=== PATIENT | female | born 1985 | race American Indian/Alaskan Native ===

== ENCOUNTER 2016-05-10 11:51 | Emergency (ER) | payer SELFPAY ==
--- NOTE | 2016-05-10 12:38 | Emergency Department Report ---
Chief Complaint: Abdominal Pain Stated Complaint: ABDOMINAL PAIN Time Seen by Provider: 05/10/16 12:36 - HPI History of Present Illness: 30 y/o female complain of abdominal pain without any vaginal bleeding or vaginal discharge .pt state that she took a home test .pt state she unable to get medical treatment without confirmation . - ROS Review of Systems: per HPI - Exam Vital Signs: Vital Signs 05/10/16 12:25 Temperature 98.3 F Pulse Rate 91 H Respiratory 18 Rate Blood Pressure 124/76 O2 Sat by Pulse 100 Oximetry Physical Exam: GENERAL: The patient is well-developed and well-nourished. Patient is in NAD. HENT: Normocephalic. Atraumatic. Patient has moist mucous membranes. Throat: No erythema, swelling or exudates. EYES: Extraocular motions are intact, PERRL NECK: Supple. No meningitic signs are noted. There is no adenopathy noted. CHEST/LUNGS: Clear to auscultation bilaterally. No wheezing, rales or rhonchi noted. There is no respiratory distress noted. HEART/CARDIOVASCULAR: Regular rate and rhythm. Normal S1 S2. No murmurs, rubs , clicks, or gallops. ABDOMEN: Abdomen is soft, nontender.. Bowel sounds normoactive. There is no abdominal distention. Negative rebound tenderness. : Deferred. SKIN: There is no rash. There is no edema. There is no diaphoresis. NEURO: The patient is A&Ox3. The patient has no focal neurologic deficits. MUSCULOSKELETAL: There is no tenderness or deformity. There is no limitation range of motion. PSYCH: Pt has appropriate mood and affect. MSE screening note: Focused history and physical exam performed. Due to findings the following was ordered: ED Disposition for MSE Condition: Stable Instructions: Abdominal Pain (ED)
[2016-05-10 13:01] LABS: Basophils % (Auto) 0.4 % (0.0-1.8); Eosinophils % (Auto) 2.4 % (0.0-4.3); Hematocrit 33.6 % (30.3-42.9); Hemoglobin 10.8 gm/dl (10.1-14.3); Mean Corpuscular HGB Conc 32 % (30-34); Mean Corpuscular Volume 79 fl (79-97); Platelet Count 352 K/mm3 (140-440); Red Blood Count 4.27 M/mm3 (3.65-5.03); Red Cell Distribution Width 15.1 % (13.2-15.2); White Blood Count 9.9 K/mm3 (4.5-11.0)
[2016-05-10 13:07] LABS: BUN/Creatinine Ratio 18.33; Blood Urea Nitrogen 11 mg/dL (7-17); Calcium 9.4 mg/dL (8.4-10.2); Carbon Dioxide 23 mmol/L (22-30); Chloride 102.8 mmol/L (98-107); Glucose 78 mg/dL (65-100); Potassium 4.2 mmol/L (3.6-5.0); Sodium 139 mmol/L (137-145)
[2016-05-10 13:08] LABS: Mean Corpuscular Hemoglobin 25 pg (28-32)
[2016-05-10 13:10] LABS: Anion Gap 17 mmol/L
[2016-05-10 15:09] LABS: Bacteria,Urine 1+ /HPF (Negative); Bilirubin,Urine NEG (Negative); Blood,Urine NEG (Negative); Ketones,Urine TR mg/dL (Negative); Leukocyte Esterase,Urine NEG (Negative); Mucus,Urine 1+ /HPF; Nitrite,Urine NEG (Negative); Protein,Urine <15 mg/dL mg/dL (Negative); Urobilinogen,Urine < 2.0 mg/dL (<2.0)
--- NOTE | 2016-05-10 23:40 | Emergency Department Report ---
ED Abdominal Pain HPI - General Chief Complaint: Abdominal Pain Stated Complaint: ABDOMINAL PAIN Time Seen by Provider: 05/10/16 23:22 Source: patient Mode of arrival: Ambulatory Limitations: No Limitations - History of Present Illness Initial Comments: 30-year-old female presents emergency department complaining of intermittent upper abdominal pain for the past one day. Patient describes a tightness that does not radiate. Patient reports recent constipation and states that she has been straining a little. Patient states she is approximately 10 weeks . She has her first appointment with her CERTIFED REFRIGERATION OPERATOR already scheduled. She denies vaginal bleeding or vaginal discharge. There are no other complaints. MD Complaint: abdominal pain -: Gradual, days(s) (1) Location: epigastric Radiation: none Severity: mild Severity scale (0 -10): 2 Quality: other (tightness) Consistency: intermittent Improves With: nothing Worsens With: nothing Associated Symptoms: nausea - Related Data LMP (females 10-50): Previous Rx's Medication Instructions Recorded Last Taken Type Acetaminophen/Codeine 1 tab PO Q6H PRN #30 tab 02/09/14 Unknown Rx [Acetaminophen-Codeine #3 TAB] Ibuprofen [Motrin] 600 mg PO Q8H PRN #50 tablet 02/09/14 Unknown Rx Ibuprofen [Motrin] 800 mg PO Q8HR PRN #45 tablet 05/30/15 Unknown Rx metroNIDAZOLE [Flagyl TAB] 500 mg PO Q12HR #14 tab 05/30/15 Unknown Rx Amoxicillin [Amoxicillin TAB] 875 mg PO BID #14 tablet 04/26/16 Unknown Rx Allergies Allergy/AdvReac Type Severity Reaction Status Date / Time No Known Allergies Allergy Verified 02/09/14 12:46 ED Review of Systems ROS: Stated complaint: ABDOMINAL PAIN Other details as noted in HPI Comment: All other systems reviewed and negative Gastrointestinal: abdominal pain, nausea ED Past Medical Hx - Past Medical History Previous Medical History?: Yes Additional medical history: Gestational DM - Surgical History Past Surgical History?: Yes Additional Surgical History: - Family History Family history: no significant - Social History Smoking Status: Never Smoker Substance Use Type: None - Medications Home Medications: Home Medications Medication Instructions Recorded Confirmed Last Taken Type Acetaminophen/Codeine 1 tab PO Q6H PRN #30 tab 02/09/14 Unknown Rx [Acetaminophen-Codeine #3 TAB] Ibuprofen [Motrin] 600 mg PO Q8H PRN #50 tablet 02/09/14 Unknown Rx Ibuprofen [Motrin] 800 mg PO Q8HR PRN #45 tablet 05/30/15 Unknown Rx metroNIDAZOLE [Flagyl TAB] 500 mg PO Q12HR #14 tab 05/30/15 Unknown Rx Amoxicillin [Amoxicillin TAB] 875 mg PO BID #14 tablet 04/26/16 Unknown Rx ED Physical Exam - General Limitations: No Limitations General appearance: alert, in no apparent distress - Head Head exam: Present: atraumatic, normocephalic - Eye Eye exam: Present: normal appearance, PERRL, EOMI - ENT ENT exam: Present: normal exam, normal orophraynx, mucous membranes moist - Neck Neck exam: Present: normal inspection, full ROM. Absent: tenderness - Respiratory Respiratory exam: Present: normal lung sounds bilaterally. Absent: respiratory distress - Cardiovascular Cardiovascular Exam: Present: regular rate, normal rhythm, normal heart sounds - GI/Abdominal GI/Abdominal exam: Present: soft, tenderness (mild epigastric tenderness to palpation), normal bowel sounds. Absent: distended, guarding, rebound - Extremities Exam Extremities exam: Present: normal inspection, full ROM. Absent: tenderness - Back Exam Back exam: Present: normal inspection, full ROM. Absent: tenderness - Neurological Exam Neurological exam: Present: alert, oriented X3. Absent: motor sensory deficit - Skin Skin exam: Present: warm, dry, intact ED Course Vital Signs 05/10/16 12:25 Temperature 98.3 F Pulse Rate 91 H Respiratory 18 Rate Blood Pressure 124/76 O2 Sat by Pulse 100 Oximetry ED Medical Decision Making - Lab Data Result diagrams: 05/10/16 12:39 05/10/16 12:39 - Medical Decision Making Laboratory results reviewed and discussed with the patient. Patient will be discharged home at this time to follow up with her CERTIFED REFRIGERATION OPERATOR. - Differential Diagnosis abdominal wall strain, abdominal pain in , GERD Critical care attestation.: If time is entered above; I have spent that time in minutes in the direct care of this critically ill patient, excluding procedure time. ED Disposition Clinical Impression: Abdominal pain affecting Disposition: DISCHARGED TO HOME OR SELFCARE Is pt being admited?: No Condition: Stable Instructions: Abdominal Pain (ED) Referrals: PRIMARY CARE, [Primary Care Provider] - 3-5 Days Time of Disposition: 23:40
[2016-05-11 00:05] VITALS: BP 127/80
== END 2016-05-11 00:06 | disposition home or self-care (01) ==
LOC: ED 11:51
DX: O26.891 Other specified pregnancy related conditions, first trimester (principal); R10.10 Upper abdominal pain, unspecified; K59.00 Constipation, unspecified; Z3A.10 10 weeks gestation of pregnancy
CPT/HCPCS: 36415; 80048; 81001; 84702; 85025

== ENCOUNTER 2016-06-18 20:18 | Emergency (ER) | payer MEDICAID ==
[2016-06-18 21:53] LABS: Bilirubin,Urine NEG (Negative); Blood,Urine LG (Negative); Ketones,Urine NEG (Negative); Leukocyte Esterase,Urine TR (Negative); Mucus,Urine FEW /HPF; Nitrite,Urine NEG (Negative); Protein,Urine <15 mg/dL mg/dL (Negative); Urobilinogen,Urine < 2.0 mg/dL (<2.0)
[2016-06-18 22:38] LABS: Basophils % (Auto) 0.3 % (0.0-1.8); Eosinophils % (Auto) 2.8 % (0.0-4.3); Hematocrit 33.1 % (30.3-42.9); Hemoglobin 10.9 gm/dl (10.1-14.3); Mean Corpuscular HGB Conc 33 % (30-34); Mean Corpuscular Hemoglobin 26 pg (28-32); Mean Corpuscular Volume 79 fl (79-97); Platelet Count 310 K/mm3 (140-440); Red Blood Count 4.18 M/mm3 (3.65-5.03); Red Cell Distribution Width 16.2 % (13.2-15.2); White Blood Count 9.5 K/mm3 (4.5-11.0)
--- NOTE | 2016-06-18 23:04 | Ultrasound Report ---
FINAL REPORT PROCEDURE: US OB TRANSVAGINAL TECHNIQUE: Real-time transvaginal sonography of the uterus, placenta, amniotic fluid, adnexa, and fetus was performed with image documentation. Measurements were obtained to determine age/size. M-mode Doppler was used to document heartbeat. CPT 38293 HISTORY: vaginal bleeding COMPARISON: No prior studies are available for comparison. FINDINGS: There is a single live intrauterine gestation in breech presentation. Heart rate is 152 beats per minute. Placenta is anterior. There is no previa. Cervix measures 4 centimeters in length and is closed. Anatomic survey was not performed. weight is 122 grams. Estimated gestational age based on the measurements is 15 weeks and 4 days. Estimated date of delivery is 12/06/2016. Follow-up ultrasound between 18 20 weeks suggested for anatomic survey. IMPRESSION: 1. Single living intrauterine gestation at approximately 15 weeks and 4 days 2. EDC by US 12/06/2016.
--- NOTE | 2016-06-18 23:05 | Ultrasound Report ---
FINAL REPORT PROCEDURE: US OB greater than 14 weeks TECHNIQUE: Real-time transabdominal sonography of the uterus, placenta, amniotic fluid, adnexa, and fetus was performed with image documentation. Measurements were obtained to determine age/size. M-mode Doppler was used to document heartbeat. HISTORY: vaginal bleeding COMPARISON: No prior studies are available for comparison. FINDINGS: There is a single live intrauterine gestation in breech presentation. Heart rate is 152 beats per minute. Placenta is anterior. There is no previa. Cervix measures 4 centimeters in length and is closed. Anatomic survey was not performed. weight is 122 grams. Estimated gestational age based on the measurements is 15 weeks and 4 days. Estimated date of delivery is 12/06/2016. Follow-up ultrasound between 18 20 weeks suggested for anatomic survey. IMPRESSION: 1. Single living intrauterine gestation at approximately 15 weeks and 4 days 2. EDC by US 12/06/2016.
--- NOTE | 2016-06-19 05:39 | Emergency Department Report ---
HPI - General Chief Complaint: Vaginal Bleeding Time Seen by Provider: 06/19/16 05:34 - HPI HPI: 31-year-old Afro-[place] female who presents to the emergency department with the complaint of some mild vaginal bleeding while . The patient was at work last night around 8 PM when she went to use the bathroom and noticed a small amount of blood in her underwear. She denies any abdominal pain, back pain, nausea, vomiting or fever. She is currently about 4 months and is with one live child. She follows with [facility] obstetrics and is on vitamins. She says that the bleeding has since stopped. She is not taken anything for symptoms prior to presentation. ED Past Medical Hx - Past Medical History Previous Medical History?: Yes Additional medical history: Gestational DM - Surgical History Past Surgical History?: Yes Additional Surgical History: - Social History Smoking Status: Never Smoker - Medications Home Medications: Home Medications Medication Instructions Recorded Confirmed Last Taken Type Acetaminophen/Codeine 1 tab PO Q6H PRN #30 tab 02/09/14 Unknown Rx [Acetaminophen-Codeine #3 TAB] Ibuprofen [Motrin] 600 mg PO Q8H PRN #50 tablet 02/09/14 Unknown Rx Ibuprofen [Motrin] 800 mg PO Q8HR PRN #45 tablet 05/30/15 Unknown Rx metroNIDAZOLE [Flagyl TAB] 500 mg PO Q12HR #14 tab 05/30/15 Unknown Rx Amoxicillin [Amoxicillin TAB] 875 mg PO BID #14 tablet 04/26/16 Unknown Rx ED Review of Systems ROS: Stated complaint: VAGINAL BLEEDING Other details as noted in HPI Comment: All other systems reviewed and negative Constitutional: denies: chills, fever Eyes: denies: eye pain, eye discharge, vision change ENT: denies: ear pain, throat pain Respiratory: denies: cough, shortness of breath, wheezing Cardiovascular: denies: chest pain, palpitations Gastrointestinal: denies: abdominal pain, nausea, diarrhea Genitourinary: other (vag bleed). denies: urgency, dysuria, discharge Musculoskeletal: denies: back pain, joint swelling, arthralgia Skin: denies: rash, lesions Neurological: denies: headache, weakness, paresthesias Physical Exam - Physical Exam Vital Signs: Vital Signs 06/18/16 06/19/16 21:15 02:53 Temperature 98.6 F 98.4 F Pulse Rate 96 H 97 H Respiratory 18 16 Rate Blood Pressure 134/95 131/81 O2 Sat by Pulse 100 100 Oximetry Physical Exam: GENERAL: The patient is well-developed well-nourished. HEENT: Normocephalic. Atraumatic. Extraocular motions are intact. Patient has moist mucous membranes. Pupils equal reactive to light bilaterally. NECK: Supple. Trachea is midline. CHEST/LUNGS: Clear to auscultation. There is no respiratory distress noted. HEART/CARDIOVASCULAR: Regular. There is no tachycardia. There is no gallop rub or murmur. ABDOMEN: Abdomen is soft, nontender. Patient has normal bowel sounds. There is no abdominal distention. SKIN: There is no rash. There is no edema. There is no diaphoresis. NEURO: The patient is awake, alert, and oriented. The patient is cooperative. The patient has no focal neurologic deficits. The patient has normal speech. MUSCULOSKELETAL: There is no tenderness or deformity. There is no limitation range of motion. There is no evidence of acute injury. ED Course Vital Signs 06/18/16 06/19/16 21:15 02:53 Temperature 98.6 F 98.4 F Pulse Rate 96 H 97 H Respiratory 18 16 Rate Blood Pressure 134/95 131/81 O2 Sat by Pulse 100 100 Oximetry ED Medical Decision Making - Lab Data Result diagrams: 06/18/16 21:42 - Medical Decision Making 31-year-old female who is about 4 months and presents to the emergency department with a single episode of light vaginal bleeding last night at work that has since stopped. The patient had blood work and ultrasound done prior to getting back to the main emergency department. Her blood work is unremarkable. Ultrasound shows a live intrauterine at about 15 weeks 4 days. Patient has a benign physical exam. Discussed with patient the diagnosis of threatened miscarriage but that the baby appears to be alive and healthy. She already has an appointment with her primary DIRECTOR TOXICOLOGY tomorrow. We discussed pelvic rest. She will return to the ER with any worsening of her symptoms or any acute distress. - Differential Diagnosis threatened miscarriage, , spontaneous , fibroids, UTI Critical Care Time: No Critical care attestation.: If time is entered above; I have spent that time in minutes in the direct care of this critically ill patient, excluding procedure time. ED Disposition Clinical Impression: Threatened miscarriage Qualifiers: Weeks of gestation: 15 weeks Qualified Code(s): Z3A.15 - 15 weeks gestation of Disposition: DISCHARGED TO HOME OR SELFCARE Is pt being admited?: No Condition: Stable Instructions: Threatened Miscarriage (ED), (ED) Additional Instructions: Please follow-up with your DIRECTOR TOXICOLOGY tomorrow as previously scheduled. Return to the emergency department with any worsening of your symptoms or any acute distress. Referrals: PRIMARY CARE, [Primary Care Provider] - 3-5 Days [facility] [Provider Group] - 3-5 Days Time of Disposition: 05:37
[2016-06-19 06:49] VITALS: BP 126/72
== END 2016-06-19 06:10 | disposition home or self-care (01) ==
LOC: ED 20:18
DX: O20.0 Threatened abortion (principal); Z3A.15 15 weeks gestation of pregnancy; Z86.32 Personal history of gestational diabetes
CPT/HCPCS: 36415; 76805; 76817; 81001; 81025; 84702; 85025; 86850; 86900; 86901

== ENCOUNTER 2016-06-21 12:09 | Outpatient (CLI) | payer MEDICAID | END 2016-06-21 14:42 | disposition home or self-care (01) | LOC: LAB 12:09 → TRG 12:09 | PROVIDERS: ATTEND Midwife | DX: O36.0120 Maternal care for anti-D [Rh] antibodies, second trimester, not applicable or unspecified (principal); Z3A.16 16 weeks gestation of pregnancy | CPT/HCPCS: 86850; 86900; 86901; 96372; J2790 ==

== ENCOUNTER 2016-08-02 11:38 | Outpatient (CLI) | payer MEDICAID ==
[2016-08-02] MEDS ORDERED: LACTATED RINGERS 500 ML IV ONE (11:54)
[2016-08-02 12:06] VITALS: BP 119/72
== END 2016-08-02 13:55 | disposition home or self-care (01) ==
LOC: TRG 11:38 → LD 11:40 → TRG 13:55
PROVIDERS: ATTEND Obstetrics & Gynecology
DX: O47.02 False labor before 37 completed weeks of gestation, second trimester (principal); Z3A.22 22 weeks gestation of pregnancy
CPT/HCPCS: 82962

== ENCOUNTER 2016-11-25 05:04 | Inpatient (IN) | payer MEDICAID ==
--- NOTE | 2016-11-24 23:52 | History and Physical Report ---
History of Present Illness Date of examination: 11/25/16 Date of admission: 11/25/16 Chief complaint: scheduled repeat c/s History of present illness: This is a 31 yo G2 P 1 at 39 weeks here for scheduled c/s for history of c/s for failed iol and pih. Patient has been patient of [employer] patient. She has history of obesity, rh neg, and poly and has been under care of [facility]. Past History Past Medical History: no pertinent history, other (obesity ) Past Surgical History: section Family/Genetic History: none Social history: no significant social history, . denies: smoking, alcohol abuse - Obstetrical History Expected Date of Delivery: 12/02/16 Actual Gestation: 39 Week(s) 0 Day(s) : 2 Para: 1 Hx # Term Pregnancies: 1 Number of Pregnancies: 0 Spontaneous Abortions: 0 Induced : 0 Number of Living Children: 0 Medications and Allergies Allergies Allergy/AdvReac Type Severity Reaction Status Date / Time No Known Allergies Allergy Verified 02/09/14 12:46 Home Medications Medication Instructions Recorded Confirmed Last Taken Type No Known Home Medications [No 09/12/16 09/12/16 Unknown History Reported Home Medications] Review of Systems All systems: negative Constitutional: weight gain - Physical Exam Breasts: Positive: deferred Cardiovascular: Regular rate Lungs: Positive: Clear to auscultation Abdomen: Positive: normal appearance, soft Genitourinary (Female): Positive: normal external genitalia, normal perenium Vulva: both: normal Vagina: Positive: normal moisture Cervix: Positive: lesion Uterus: Positive: normal size, normal contour Anus/Rectum: Positive: normal perianal skin Extremities: Positive: normal Deep Tendon Reflex Grade: Normal +2 - Obstetrical FHR: auscultation normal, category 1 Results Result Diagrams: 11/25/16 05:50 All other labs normal. Assessment and Plan IUP 39 weeks scheduled repeat r/b/a reviewed which include but not limited to bleeding infection damage to pelvic organs risk of pain, blood clots, hysterectomy and will proceed with scheduled c/s
[~2016-11-25 05:04] MED LIST: ANCEF/STERILE WATER 2 GM/20 ML 2 GM/20 ML SYRINGE IV NR; PEPCID IV ONE; PITOCin/NS 20 UNIT/1000ML DRIP 20 UNITS/1,000 ML BAG IV SCH; REGLAN IV ONE
[2016-11-25] MEDS ORDERED: PEPCID IV ONE (05:16)
[2016-11-25] MEDS ORDERED: REGLAN ONE (05:16)
[2016-11-25] MEDS ORDERED: BICITRA ONE (05:16)
[2016-11-25] MEDS ORDERED: PITOCin/NS 20 UNIT/1000ML DRIP 20,000 MILLIUNITS/1,000 ML BAG IV ONE ×2 (05:17→16:08)
[2016-11-25] MEDS ORDERED: BICITRA PO ONE (05:30)
[2016-11-25] MEDS: LACTATED RINGERS 1,000 ML IV SCH ×3 (06:00→07:25)
[2016-11-25 06:06] LABS: Basophils % (Auto) 0.2 % (0.0-1.8); Eosinophils % (Auto) 2.5 % (0.0-4.3); Hematocrit 36.5 % (30.3-42.9); Hemoglobin 11.7 gm/dl (10.1-14.3); Mean Corpuscular HGB Conc 32 % (30-34); Mean Corpuscular Hemoglobin 27 pg (28-32); Mean Corpuscular Volume 83 fl (79-97); Platelet Count 265 K/mm3 (140-440); Red Blood Count 4.39 M/mm3 (3.65-5.03); Red Cell Distribution Width 14.7 % (13.2-15.2); White Blood Count 8.1 K/mm3 (4.5-11.0)
--- NOTE | 2016-11-25 07:21 | Anesthesia Consultation ---
Anesthesia Consult and Med Hx Date of service: 11/25/16 - Airway Anesthetic Teeth Evaluation: Good ROM Head & Neck: Adequate Mental/Hyoid Distance: Adequate - Pre-Operative Health Status ASA Pre-Surgery Classification: ASA3 Proposed Anesthetic Plan: Epidural, Spinal - Pulmonary Hx Asthma: No - Cardiovascular System Hx Hypertension: No - Central Nervous System Hx Seizures: No Hx Psychiatric Problems: No - Endocrine Hx Renal Disease: No Hx Hypothyroidism: No Hx Hyperthyroidism: No - Hematic Hx Anemia: No Hx Sickle Cell Disease: No - Other Systems Hx Alcohol Use: No Hx Obesity: Yes (Morbid obesity)
--- NOTE | 2016-11-25 07:21 | Anesthesia Day of Surgery ---
Anesthesia Day of Surgery - Day of Surgery Patient Examined: Yes Patient H&P Reviewed: Yes Patient is NPO: Yes
[2016-11-25] MEDS ORDERED: ZOFRAN IV PRN ×2 (07:22→09:22)
[2016-11-25] MEDS ORDERED: PHENERGAN PR PRN ×2 (07:22→09:22)
[2016-11-25] MEDS ORDERED: PHENERGAN PO PRN (07:22)
[2016-11-25] MEDS ORDERED: NARCAN 0.4 MG/1 ML IV PRN ×2 (07:22→09:22)
[2016-11-25] MEDS ORDERED: MORPHINE ONE (07:33)
[2016-11-25] MEDS ORDERED: ANCEF/STERILE WATER 2 GM/20 ML IV ONE (07:54)
[2016-11-25] MEDS ORDERED: fentaNYL-BUPIV 2 MCG/ML-0.125% 2 MCG/1 ML BAG EPIDURAL SCH (08:00)
[2016-11-25] MEDS ORDERED: SODIUM CHLORIDE FLUSH SYRINGE 10 ML IV NR ×2 (08:00→10:00)
[2016-11-25] MEDS ORDERED: NACL 0.9% IR ONE (08:00)
[2016-11-25] MEDS ORDERED: WATER FOR IRRIG STERILE IR ONE (08:00)
[2016-11-25] MEDS ORDERED: DILAUDID ONE (08:29)
[2016-11-25] MEDS ORDERED: XYLOCAINE MPF 2% ONE ×2 (08:48→09:14)
[2016-11-25] MEDS ORDERED: ZOFRAN ONE (08:49)
--- NOTE | 2016-11-25 09:14 | Procedure Note ---
OB Delivery Note - Delivery Date of Delivery: 11/25/16 Surgeon: MARTÍN NGUYEN Estimated blood loss: other (700 cc) - Section Preop diagnosis: repeat Postop diagnosis: same section procedure: section Disposition: PACU Complications: none Narrative: see op report - Infant A at 1 minute: 8 at 5 minutes: 9 Infant Gender: Male (weight 7 pound 9 ounces)
[2016-11-25] MEDS ORDERED: MYLICON PO PRN (09:22)
[2016-11-25] MEDS ORDERED: LANSINOH TP PRN (09:22)
[2016-11-25] MEDS ORDERED: SENOKOT PO PRN (09:22)
[2016-11-25] MEDS ORDERED: MILK OF MAGNESIA PO PRN (09:22)
[2016-11-25] MEDS ORDERED: ANUCORT-HC PR PRN (09:22)
[2016-11-25] MEDS ORDERED: NORCO 5/325 PO PRN (09:22)
[2016-11-25] MEDS ORDERED: TUCKS PAD TP PRN (09:22)
[2016-11-25] MEDS ORDERED: MORPHINE IV PRN ×2 (09:22)
[2016-11-25] MEDS ORDERED: TYLENOL PO PRN (09:22)
--- NOTE | 2016-11-25 09:22 | Operative Report ---
Operative Report Operative Report: PREOPERATIVE DIAGNOSES: 1. Intrauterine at 39 weeks . 2. Desires repeat LSTCS POSTOPERATIVE DIAGNOSES: 1. Intrauterine at 39 weeks . 2. Desires repeat LSTCS 3. Adhesions PROCEDURE PERFORMED: Repeat low-transverse section: lysis of adhesions ; vacuum assisted . ANESTHESIA: Spinal. ESTIMATED BLOOD LOSS: 700 mL. COMPLICATIONS: None. FINDINGS: Male in cephalic presentation, OA position, weight 7 pounds 9 ounces. Apgars were 8 at 1 minute and 9 at 5 minutes. Normal uterus, tubes, and ovaries were noted.Dense adhesions attached anteriorly to the uterus INDICATIONS: The patient is a 31-year-old 2, para 1 female, who presented to labor and delivery for scheduled repeat The procedure was described to the patient in detail including possible risks of bleeding, infection, injury to surrounding organs, and possible need for further surgery. Informed consent was obtained prior to proceeding with the procedure. PROCEDURE NOTE: The patient was taken to the operating room where Spinal anesthesia was found to be adequate. The patient was prepped and draped in the usual sterile fashion in the dorsal supine position with a left-zapata tilt. A Pfannenstiel skin incision was made with the scalpel and carried through to the underlying layer of fascia using the Bovie. The fascia was incised in the midline and extended laterally using Tanner scissors. Jorge clamps were used to elevate the superior aspect of the fascial incision, which was elevated, and the underlying rectus muscles were dissected off bluntly and using Tanner scissors. Attention was then turned to the inferior aspect of the fascial incision, which in similar fashion was grasped with Jorge clamps, elevated, and the underlying rectus muscles were dissected off bluntly and using Tanner scissors. The rectus muscles were dissected in the midline. The peritoneum was bluntly dissected, entered, and extended superiorly and inferiorly with good visualization of the bladder. The bladder blade was inserted. The vesicouterine peritoneum was identified with pickups and entered sharply using Metzenbaum scissors. This incision was extended laterally and the bladder flap was created digitally. The bladder blade was reinserted. The lower uterine segment was incised in a transverse fashion using the scalpel and extended using manual traction. Clear fluid was noted. The was subsequently delivered atraumatically with assistance form vacuum. The nose and mouth were bulb suctioned. The cord was clamped and cut. The was subsequently handed to the awaiting nursery nurse. Next, cord blood was obtained per the patient's request for cord blood donation, which took several minutes to perform. Subsequent to the collection of this blood, the placenta was removed spontaneously intact with a 3-vessel cord noted. The uterus was exteriorized after area released of adhesion from the anterior wall with tie and stitch and cleared of all clots and debris. The uterine incision was repaired in 2 layers using 0 vicryl suture.Repair of the uterine anterior adhesion with running locked suture with o vicryl. Hemostasis was visualized. The uterus was returned to the abdomen. Thissel and surgicell used for hemostasis. The pelvis was copiously irrigated. The uterine incision was reexamined and was noted to be hemostatic. The fascia was closed with 0 PDS, the subcutaneous layer was closed with 3-0 plain gut, and the skin was closed with selina. Sponge, lap, and instrument counts were correct x2. The patient was stable at the completion of the procedure and was subsequently transferred to the recovery room in stable condition.
[2016-11-25] MEDS ORDERED: PITOCin/NS 20 UNIT/1000ML DRIP 20 UNITS/1,000 ML BAG IV SCH (10:00)
[2016-11-25] MEDS: TORADOL IV PRN ×2 (10:28→12:11)
--- NOTE | 2016-11-25 11:01 | Post Anesthesia Evaluation ---
- Post Anesthesia Evaluation Patient Participated: Yes Airway Patent: Yes Stable Respiratory Function: Yes Nausea/Vomiting: No Temp > 96.8F: Yes Pain Manageable: Yes Adequeate Hydration: Yes Anesthesia Complications: No Block Receding Appropriately: Not Applicable Patient on Ventilator: No
[2016-11-25] MEDS ORDERED: METHERGINE IM ONE ×2 (12:32→12:40)
[2016-11-25] MEDS ORDERED: CYTOTEC PR ONE (12:34)
[2016-11-25] MEDS ORDERED: CYTOTEC ONE (12:39)
[2016-11-25 12:57] LABS: Basophils % (Auto) 0.1 % (0.0-1.8); Eosinophils % (Auto) 0.3 % (0.0-4.3); Hematocrit 30.7 % (30.3-42.9); Hemoglobin 10.1 gm/dl (10.1-14.3); Mean Corpuscular HGB Conc 33 % (30-34); Mean Corpuscular Hemoglobin 27 pg (28-32); Mean Corpuscular Volume 82 fl (79-97); Platelet Count 244 K/mm3 (140-440); Red Blood Count 3.74 M/mm3 (3.65-5.03); Red Cell Distribution Width 14.6 % (13.2-15.2); White Blood Count 11.8 K/mm3 (4.5-11.0)
--- NOTE | 2016-11-25 13:01 | Event Note ---
Date: 11/25/16 POD#0 s/p repeat c/sec bleeding 2 golf ball clots notified by nurse of approx 500 cc patient was evaluated and noted sitting up in bed comfortable NAD CVS RRR s1s2 lungs: CTA no wheezes no crackles abd soft nt uteus firm at umbilicus ext: no c/c/ e no calf tenderness lochia; moderate pelvic exam: palm size clot in uterus A/P POD#0 s/p repeat c/sec, PP hemorrhage ( cytotec 800 ug given rectally methergine 0.2mg IM x1 will do pad count and cbc now and then tonight patient currently stable bleeding decreasing will continue to closely observe
[2016-11-25] MEDS: PERCOCET 5/325 PO PRN ×2 (16:23→22:20)
[2016-11-25 20:48] LABS: Hematocrit 27.3 % (30.3-42.9); Hemoglobin 9.1 gm/dl (10.1-14.3)
[2016-11-25] MEDS: MOTRIN PO PRN (21:11)
[2016-11-26] MEDS: PERCOCET 5/325 PO PRN ×3 (07:28→22:50)
[2016-11-26] MEDS: PRENATAL VITAMIN PO SCH (07:29)
[2016-11-26] MEDS: FEOSOL PO SCH (07:30)
--- NOTE | 2016-11-26 08:37 | Progress Note ---
Subjective Date of service: 11/26/16 Principal diagnosis: repeat csection Interval history: Patient seen on post-op day 1, comfortable, ambulating and satisfied with anesthesia provided. Objective - Constitutional Vitals: Vital Signs - 12hr 11/26/16 11/26/16 00:30 04:00 Temperature 98.6 F 98.6 F Pulse Rate 91 H 81 Respiratory 16 16 Rate Blood Pressure 155/78 120/68 - Labs CBC & Chem 7: 11/25/16 20:37 Labs: Abnormal lab results 11/25/16 11/25/16 Range/Units 12:45 20:37 WBC 11.8 H (4.5-11.0) K/mm3 Hgb 9.1 L (10.1-14.3) gm/dl Hct 27.3 L (30.3-42.9) % MCH 27 L (28-32) pg Lymph % (Auto) 10.7 L (13.4-35.0) % Seg Neutrophils % 84.8 H (40.0-70.0) % Seg Neutrophils # 10.0 H (1.8-7.7) K/mm3
[2016-11-26] MEDS ORDERED: M-M-R II VACCINE SUB-Q ONE (09:24)
[2016-11-26] MEDS ORDERED: BOOSTRIX IM ONE (09:24)
--- NOTE | 2016-11-26 12:37 | Progress Note ---
Assessment and Plan - Patient Problems (1) delivery delivered Current Visit: Yes Status: Acute Plan to address problem: routine postoperative care Subjective - Subjective Date of service: 11/26/16 Principal diagnosis: repeat csection Interval history: Patient states she is hungry. Pain under better control. Reports being able to void without difficulty Patient reports: appetite normal, voiding normally, pain well controlled : doing well Objective - Vital Signs Latest vital signs: Vital Signs Temp Pulse Resp BP 11/26/16 09:05 98.6 F 87 20 112/65 11/26/16 04:00 98.6 F 81 16 120/68 11/26/16 00:30 98.6 F 91 H 16 155/78 11/25/16 19:40 98.6 F 81 16 137/77 11/25/16 16:23 20 11/25/16 16:00 97.9 F 84 16 151/83 11/25/16 12:41 20 Intake and Output 11/25/16 11/26/16 11/26/16 22:59 06:59 14:59 Intake Total 600 300 360 Output Total 400 1200 Balance 200 -900 360 Intake: Oral 300 Intake, Free Water 300 300 360 Output: Urine 400 1200 Indwelling Catheter 400 Void 1200 Other: Total, Intake Amount 300 Total, Output Amount 400 600 # Voids Void 1 1 - Exam Abdomen: Present: normal appearance Uterus: Present: normal, firm - Labs Labs: Abnormal lab results 11/25/16 11/25/16 Range/Units 12:45 20:37 WBC 11.8 H (4.5-11.0) K/mm3 Hgb 9.1 L (10.1-14.3) gm/dl Hct 27.3 L (30.3-42.9) % MCH 27 L (28-32) pg Lymph % (Auto) 10.7 L (13.4-35.0) % Seg Neutrophils % 84.8 H (40.0-70.0) % Seg Neutrophils # 10.0 H (1.8-7.7) K/mm3
[2016-11-26] MEDS: MOTRIN PO PRN (22:49)
[2016-11-27] MEDS ORDERED: BOOSTRIX IM ONE (06:05)
[2016-11-27] MEDS: PRENATAL VITAMIN PO SCH (10:34)
[2016-11-27] MEDS: FEOSOL PO SCH (10:35)
[2016-11-27] MEDS: PERCOCET 5/325 PO PRN (10:35)
[2016-11-27] MEDS: MOTRIN PO PRN (10:35)
--- NOTE | 2016-11-27 11:55 | Progress Note ---
Assessment and Plan A: POD#2 s/p repeat section, asymptomatic anemia P: Routine postoperative care. Discharge tomorrow. Subjective - Subjective Date of service: 11/27/16 Principal diagnosis: repeat csection Interval history: Pt without complaints. She would like to go home. Patient reports: appetite normal, voiding normally, pain well controlled, flatus , ambulating normally, no bowel movement, no nauseated : doing well Objective - Vital Signs Latest vital signs: Vital Signs Temp Pulse Resp BP 11/27/16 07:55 98.3 F 81 20 131/73 11/27/16 00:00 98.6 F 100 H 20 136/74 11/26/16 16:46 98.4 F 102 H 20 143/66 Intake and Output 11/26/16 11/27/16 11/27/16 22:59 06:59 14:59 Intake Total 360 360 Balance 360 360 Intake: Oral 360 Intake, Free Water 360 Other: Total, Intake Amount 360 # Voids Void 1 2 1 - Exam Breasts: Present: deferred Cardiovascular: Present: Regular rate Lungs: Present: Clear to auscultation Abdomen: Present: soft (obese, ), normal bowel sounds Uterus: Present: fundal height below umbilicus Extremities: Present: normal Incision: Present: intact (with selina )
--- NOTE | 2016-11-27 15:53 | Discharge Summary ---
Providers - Providers Date of Admission: 11/25/16 05:04 Date of discharge: 11/27/16 Attending physician: MARTÍN NGUYEN MD Primary care physician: KIRTI MANRIQUEZ Hospitalization Reason for admission: section Delivery: Procedure: section, repeat low transverse Procedure details: Please see operative note. Incision: intact Other procedures: none complications: none Discharge diagnosis: IUP at term delivered [place] baby: male Hospital course: Patient underwent repeat section which she tolerated well. Her postoperative course on, condition at discharge criteria on postoperative day # 2. She'll follow-up in the office in 1 week for staple removal. Condition at discharge: Stable Disposition: - TO HOME OR SELFCARE - Discharge Diagnoses (1) Term of male Status: Acute (2) Morbid obesity Status: Acute (3) delivery delivered Status: Acute (4) Anemia Status: Acute Qualifiers: Anemia type: unspecified type Iron deficiency anemia type: I Vitamin B12 deficiency anemia type: V Folate deficiency anemia type: F Bone marrow failure anemia type: B Hemolytic anemia type: H Other causes of anemia: O Chronic kidney disease stage: C Qualified Code(s): D64.9 - Anemia, unspecified Plan - Discharge Medications Prescriptions: Ferrous Sulfate [Feosol 325 MG tab] 325 mg PO BID #60 tablet Ibuprofen [Motrin] 800 mg PO Q8HR PRN #30 tablet PRN Reason: Pain oxyCODONE /ACETAMINOPHEN [Percocet 5/325] 1 tab PO Q6HR PRN #40 tablet PRN Reason: Pain Vit-Fe Fumar-FA [ Vitamin] 1 tab PO QDAY #30 tablet - Provider Discharge Summary Activity: routine, no sex for 6 weeks, no heavy lifting 4 weeks, no strenuous exercise Diet: routine Instructions: routine Additional instructions: [] Smoking cessation referral if applicable(refer to patient education folder for contact #) [] Refer to [facility] Booklet Call your doctor immediately for: * Fever > 100.5 * Heavy vaginal bleeding ( >1 pad per hour) * Severe persistent headache * Shortness of breath * Reddened, hot, painful area to leg or breast * Drainage or odor from incision. * Keep incision clean and dry at all times and follow doctor's instructions regarding bathing/showering Please schedule your son's circumcision before he is one month old. - Follow up plan Follow up: GABBI BETANCOURT CNM [Advanced Practice Nurse] - 12/02/16 (staple removal )
[2016-11-27 17:40] VITALS: BP 123/71
== END 2016-11-27 19:00 | disposition home or self-care (01) | DRG 765 ==
LOC: APU 05:04 → OB 10:49
PROVIDERS: ADMIT Obstetrics & Gynecology; ATTEND Obstetrics & Gynecology
PROC: 10D00Z1 Extraction of Products of Conception, Low, Open Approach (ICD-10-PCS; principal; 2016-11-25)
PROC: 30233S1 Transfusion of Nonautologous Globulin into Peripheral Vein, Percutaneous Approach (ICD-10-PCS; 2016-11-25)
PROC: 3E0234Z Introduction of Serum, Toxoid and Vaccine into Muscle, Percutaneous Approach (ICD-10-PCS; 2016-11-26)
DX: O34.219 Maternal care for unspecified type scar from previous cesarean delivery (principal); Z68.42 Body mass index [BMI] 45.0-49.9, adult; Z3A.39 39 weeks gestation of pregnancy; Z37.0 Single live birth; O99.214 Obesity complicating childbirth; E66.01 Morbid (severe) obesity due to excess calories; O99.02 Anemia complicating childbirth; D64.9 Anemia, unspecified; Z23 Encounter for immunization
CPT/HCPCS: 36415; 85014; 85018; 85025; 85461; 86850; 86900; 86901; 90471; 99211; C9250; G0463; J0690; J1170; J1885; J2210; J2270; J2405; J2590; J2765; J2790; J7120

== ENCOUNTER 2017-01-08 05:42 | Day surgery (SDC) | payer MEDICAID ==
--- NOTE | 2017-01-07 21:59 | History and Physical Report ---
History of Present Illness Date of examination: 01/08/17 Chief complaint: undesired fertility History of present illness: Pt is a 31 year old female who presents for surgical sterilization. She is aware of long-acting reversible contraception and she desires to proceed. Past History Past Medical History: other (Morbid Obesity) Past Surgical History: section (x 2) Family/Genetic History: none Social history: no significant social history - Obstetrical History : 2 Para: 2 Hx # Term Pregnancies: 2 Number of Pregnancies: 0 Spontaneous Abortions: 0 Induced : 0 Number of Living Children: 2 Medications and Allergies Allergies Allergy/AdvReac Type Severity Reaction Status Date / Time No Known Allergies Allergy Verified 01/07/17 10:34 Home Medications Medication Instructions Recorded Confirmed Last Taken Type No Known Home Medications [No 01/07/17 01/07/17 Unknown History Reported Home Medications] Active Meds: Active Medications Famotidine (Pepcid) 20 mg PO PREOP NR Stop: 01/08/17 16:00 Lactated Ringer's (Lactated Ringers) 1,000 mls @ 75 mls/hr IV DIRECT MARLENE Metoclopramide HCl (Reglan) 10 mg PO PREOP NR Stop: 01/08/17 16:00 Midazolam HCl (Versed) 2 mg IV PREOP NR Stop: 01/08/17 23:59 Review of Systems All systems: negative - Physical Exam Breasts: Positive: deferred Cardiovascular: Regular rate Lungs: Positive: Clear to auscultation Abdomen: Positive: soft (obese) Extremities: Positive: normal Results All other labs normal. Assessment and Plan A: Undesired Fertility Morbid Obesity P: Proceed with laparoscopic bilateral tubal ligation and other indicated procedures.
[~2017-01-08 05:42] MED LIST changes: +MARCAINE 0.5% INFILTRATI ONE; +NACL 0.9% IR ONE; -PEPCID IV ONE; -PITOCin/NS 20 UNIT/1000ML DRIP 20 UNITS/1,000 ML BAG IV SCH; -REGLAN IV ONE
[2017-01-08] MEDS ORDERED: REGLAN PO NR (06:00)
[2017-01-08] MEDS ORDERED: PEPCID PO NR (06:00)
[2017-01-08] MEDS ORDERED: VERSED IV NR (06:00)
[2017-01-08] MEDS: LACTATED RINGERS 1,000 ML IV SCH ×2 (06:40→10:15)
[2017-01-08] MEDS ORDERED: NACL BACTERIOSTATIC INFILTRATI ONE (06:41)
--- NOTE | 2017-01-08 06:51 | Anesthesia Day of Surgery ---
Anesthesia Day of Surgery - Day of Surgery Patient Examined: Yes Patient H&P Reviewed: Yes Patient is NPO: Yes
--- NOTE | 2017-01-08 06:51 | Anesthesia Consultation ---
Anesthesia Consult and Med Hx Date of service: 01/08/17 - Airway Anesthetic Teeth Evaluation: Good ROM Head & Neck: Adequate Mental/Hyoid Distance: Adequate Mallampati Class: Class II Intubation Access Assessment: Probably Good - Pre-Operative Health Status ASA Pre-Surgery Classification: ASA3 Proposed Anesthetic Plan: General - Pulmonary Hx Asthma: No COPD: No Hx Pneumonia: No - Cardiovascular System Hx Hypertension: No - Central Nervous System Hx Seizures: No Hx Psychiatric Problems: No - Endocrine Hx Renal Disease: No Hx End Stage Renal Disease: No Hx Hypothyroidism: No Hx Hyperthyroidism: No - Hematic Hx Anemia: No Hx Sickle Cell Disease: No - Other Systems Hx Alcohol Use: No Hx Cancer: No Hx Obesity: Yes (Morbid obesity BMI 42.8)
[2017-01-08 07:06] LABS: Hematocrit 33.3 % (30.3-42.9); Hemoglobin 10.9 gm/dl (10.1-14.3); Mean Corpuscular HGB Conc 33 % (30-34); Mean Corpuscular Volume 79 fl (79-97); Platelet Count 406 K/mm3 (140-440); Red Blood Count 4.23 M/mm3 (3.65-5.03); Red Cell Distribution Width 14.8 % (13.2-15.2); White Blood Count 6.1 K/mm3 (4.5-11.0)
[2017-01-08 07:07] LABS: Mean Corpuscular Hemoglobin 26 pg (28-32)
[2017-01-08] MEDS ORDERED: ZEMURON IV ONE (07:12)
[2017-01-08] MEDS ORDERED: DECADRON ONE ×2 (07:12→07:13)
[2017-01-08] MEDS ORDERED: ZOFRAN ONE (07:13)
[2017-01-08] MEDS ORDERED: ROBINUL ONE (07:13)
[2017-01-08] MEDS ORDERED: XYLOCAINE MPF 2% ONE (07:14)
[2017-01-08] MEDS ORDERED: SUBLIMAZE ONE (07:15)
[2017-01-08] MEDS ORDERED: DIPRIVAN 10 MG/ML IV ONE (07:15)
[2017-01-08] MEDS ORDERED: MARCAINE 0.5% 30 ML INFILTRATI ONE (07:20)
[2017-01-08] MEDS ORDERED: PERCOCET 5/325 PO PRN (07:30)
[2017-01-08] MEDS ORDERED: TORADOL ONE (07:47)
[2017-01-08] MEDS ORDERED: ZOFRAN IV PRN (08:00)
[2017-01-08] MEDS ORDERED: DILAUDID ONE (08:09)
[2017-01-08] MEDS ORDERED: MARCAINE 0.5% INFILTRATI ONE ×2 (09:04)
[2017-01-08] MEDS ORDERED: NACL 0.9% IR ONE (09:13)
--- NOTE | 2017-01-08 09:49 | Operative Report ---
Operative Report Operative Report: Date of procedure: January 08, 2017 Preoperative diagnosis: 1) Multiparity desires permanent sterilization 2) Morbid Obesity Postoperative diagnosis: Same 3) Intraabdominal adhesions Procedure: Laparoscopic bilateral tubal ligation via Filshie clip method, Lysis of adhesions Surgeon: Светлана White MD Marketing Technology Coordinator: Leticia Dumont MD Anesthesia: General endotracheal anesthesia Findings: 1) Normal appearing 10 wk sized uterus and ovaries 2) Extensive adhesions of the omentum to the anterior abdominal wall; adhesions of the left fallopian tube to the anterior abdominal wall and sidewall: adhesions of the bladder to the anterior abdominal wall Estimated blood loss: 25 mL IV fluid: 700 mL Urine output: 200 mL clear prior to the procedure Specimens: None Complications: None. Counts correct 2 Disposition: Stable to PACU Indication for Procedure: Pt is a 31 year old -[place] Citizen female who presents for surgical sterilization despite knowledge of long-acting reversible contraceptives (LARCs). Procedure in detail: After the risks, benefits, alternatives and complications were explained to the patient, she gave informed consent for the procedure. She was subsequently taken to the operating room with her IV noted to be running well and placed in the dorsal supine position. SCDs were noted to be in place and functioning. General anesthesia was then induced without difficulty. The patient was then placed in the dorsal lithotomy position with Pro stirrups. Exam under anesthesia revealed a 10 wk sized mobile uterus. The patient was then prepped and draped in a normal sterile fashion. A timeout was then performed. A red rubber catheter was used to empty the bladder of 200 mL of clear urine. A bivalve speculum was placed into the vagina. A single-tooth tenaculum was then placed on the anterior lip of the cervix for traction. A Hulka uterine manipulator was placed without difficulty. All other instruments were removed from the vagina. The surgeon's gloves were then changed. Attention was then turned to entry into the abdominal cavity. A 5 mm infraumbilical incision was made with an 11 blade. The skin was grasped on either side of the umbilicus with towel clips and tented up. Both the long and short Veres needles were placed multiple times with some difficulty without success. At this time Dr Dumont entered the case. An incision was made 4 cm above the umbilicus and a 5 mm long Visiport trocar was placed under direct visualization. Intraperitoneal placement was confirmed visually and the abdomen was insufflated to a pressure of 15 mm Hg with carbon dioxide. Dr Dumont left the case at this time. An anatomic survey was then performed, with omental adhesions to the abdominal wall completely blocking the view of the pelvis. An 8 mm trocar was placed in each lower quadrant under direct visualization 6 cm from the midline. The patient was placed in Trendelenburg position. A 5 mm Ligasure device was then used to lyse the omental adhesions for approximately 20 minutes. Once the pelvis was in view, the uterus was elevated. Dense adhesion of the left fallopian tube with only a portion of the ampullae and the fimbriae being identifiable. The right fallopian tube appeared normal. Two Filshie clips were placed across each fallopian tube. At this time, Adan AH was sprayed over the cut surface of the omentum. Hemostasis was noted. At this time, all instruments were removed from the abdominal cavity. The pneumoperitoneum was released and a Valsalva maneuver was performed prior to removal of the trocars from the abdominal cavity. The incisions were then infiltrated with quarter percent Marcaine. The incisions were then reapproximated with 4-0 Vicryl in a subcuticular fashion. They were then covered with Steri-Strips, Telfa and Tegaderms. The towel clamp sites were covered with glue. Next, the uterine manipulator was removed. Hemostasis was noted. At this time the procedure was ended. The patient was placed into the dorsal supine position and extubated without difficulty. She was subsequently taken to the PACU in stable condition. All instrument, needle and lap counts were correct 2.
--- NOTE | 2017-01-08 09:54 | Short Stay Summary ---
Short Stay Documentation Date of service: 01/08/17 - History H&P: dictated Social history: no significant social history - Allergies and Medications Current Medications: Allergies No Known Allergies Allergy (Verified 01/07/17 10:34) Home Medications Medication Instructions Recorded Confirmed Last Taken Type No Known Home Medications [No 01/07/17 01/07/17 Unknown History Reported Home Medications] Active Medications Famotidine (Pepcid) 20 mg PO PREOP NR Stop: 01/08/17 16:00 Last Admin: 01/08/17 06:59 Dose: 20 mg Hydromorphone HCl (Dilaudid) 0.5 mg IV Q10MIN PRN PRN Reason: Pain , Severe (7-10) Stop: 01/08/17 13:00 Lactated Ringer's (Lactated Ringers) 1,000 mls @ 75 mls/hr IV DIRECT MARLENE Last Admin: 01/08/17 06:40 Dose: 75 mls/hr Cefazolin Sodium (Ancef/Sterile Water 2 Gm/20 Ml) 2 gm in 20 mls @ 80 mls/hr IV PREOP NR PRN Reason: Protocol Stop: 01/08/17 23:45 Metoclopramide HCl (Reglan) 10 mg PO PREOP NR Stop: 01/08/17 16:00 Last Admin: 01/08/17 06:59 Dose: 10 mg Midazolam HCl (Versed) 2 mg IV PREOP NR Stop: 01/08/17 23:59 Last Admin: 01/08/17 07:25 Dose: 2 mg Ondansetron HCl (Zofran) 4 mg IV ONCE PRN PRN Reason: Nausea And Vomiting Stop: 01/08/17 14:00 Oxycodone/Acetaminophen (Percocet 5/325) 1 tab PO ONCE PRN PRN Reason: Pain, Moderate (4-6) Stop: 01/08/17 16:00 - Physical exam Breasts: deferred - Brief post op/procedure progress note Date of procedure: 01/08/17 Pre-op diagnosis: Undesired Fertility, Morbid Obesity Post-op diagnosis: other (Same, Extensive intraabdominal Adhesions) Procedure: Laparoscopic bilateral tubal ligation via Filshie clip method Lysis of adhesions Anesthesia: GETA Findings: 1) Normal appearing uterus and ovaries 2) Extensive adhesions of the omentum to the anterior abdominal wall; adhesions of the left fallopian tube to the anterior abdominal wall and sidewall : adhesions of the bladder to the anterior abdominal wall Surgeon: TAN KIRK Front Desk Admin: KIRTI MANRIQUEZ Estimated blood loss: minimal (25 mL) Pathology: none Condition: stable - Hospital course Hospital course: Pt underwent laparoscopic tubal ligation and lysis of adhesions which she tolerated well. She was observed in the PACU until she met discharge criteria. - Disposition Condition at discharge: Stable Disposition: DC- TO HOME OR SELFCARE - Discharge Diagnoses (1) Encounter for sterilization Status: Acute (2) Adhesion of omentum Status: Acute (3) Morbid obesity Status: Acute Short Stay Discharge Plan Activity: other (Nothing in vagina x 4 wks; No heavy lifting ) Weight Bearing Status: Full Weight Bearing Diet: regular Follow up with: TAN KIRK MD [Staff Physician] - 01/22/17 (incision check ) Prescriptions: Ibuprofen [Motrin] 800 mg PO Q8HR PRN #30 tablet PRN Reason: Pain oxyCODONE /ACETAMINOPHEN [Percocet 5/325] 1 tab PO Q6HR PRN #40 tablet PRN Reason: Pain
[2017-01-08] MEDS: DILAUDID IV PRN ×2 (09:58→10:10)
[2017-01-08 12:42] VITALS: BP 147/85
== END 2017-01-08 16:03 | disposition home or self-care (01) ==
LOC: OR 05:42
PROVIDERS: ATTEND Obstetrics & Gynecology
DX: Z30.2 Encounter for sterilization (principal); N73.6 Female pelvic peritoneal adhesions (postinfective); E66.01 Morbid (severe) obesity due to excess calories; Z68.41 Body mass index [BMI] 40.0-44.9, adult; Z98.890 Other specified postprocedural states
CPT/HCPCS: 36415; 49329; 58671; 81025; 85027; 86850; 86870; 86900; 86901; J0690; J1100; J1170; J1885; J2250; J2405; J2704; J3010; J7120

== ENCOUNTER 2018-01-06 22:23 | Emergency (ER) | payer MEDICAID ==
[2018-01-06 23:15] VITALS: BP 138/77
[2018-01-06] MEDS ORDERED: TYLENOL PO ONE (23:15)
--- NOTE | 2018-01-07 01:54 | Emergency Department Report ---
ED Fever HPI - General Chief Complaint: Fever Stated Complaint: HEADACHE, CHILLS Time Seen by Provider: 01/07/18 01:17 - History of Present Illness Initial Comments: 32-year-old female that is 10 weeks comes in for headache fever chills body aches and nausea 2 days. Patient reports that she was recently seen by her ELEVATOR STARTER yesterday and on is being treated for a urinary tract infection. Patient is taken nothing for fever. Patient's a past medical history of gestational diabetes currently takes vitamins and has no known drug allergies. Timing/Duration: other (2) Fever Severity/Quality: greater than 100.5 F Associated Symptoms: nausea/vomiting ED Review of Systems ROS: Stated complaint: HEADACHE, CHILLS Other details as noted in HPI Constitutional: chills, fever, malaise Eyes: denies: eye pain, eye discharge, vision change ENT: denies: ear pain, throat pain Respiratory: denies: cough, shortness of breath, wheezing Cardiovascular: denies: chest pain, palpitations Endocrine: no symptoms reported Gastrointestinal: nausea Genitourinary: denies: urgency, dysuria, discharge Musculoskeletal: myalgia Skin: denies: rash, lesions Neurological: headache. denies: weakness, paresthesias Psychiatric: denies: anxiety, depression Hematological/Lymphatic: denies: easy bleeding, easy bruising ED Past Medical Hx - Past Medical History Previous Medical History?: Yes Hx Hypertension: No Hx Congestive Heart Failure: No Hx Diabetes: No Hx Deep Vein Thrombosis: No Hx Renal Disease: No Hx Sickle Cell Disease: No Hx Seizures: No Hx Asthma: No Hx COPD: No Hx HIV: No Additional medical history: Gestational DM - Surgical History Past Surgical History?: Yes Additional Surgical History: - Social History Smoking Status: Never Smoker Substance Use Type: None - Medications Home Medications: Home Medications Medication Instructions Recorded Confirmed Last Taken Type Ibuprofen [Motrin] 800 mg PO Q8HR PRN #30 tablet 01/08/17 Unknown Rx oxyCODONE /ACETAMINOPHEN [Percocet 1 tab PO Q6HR PRN #40 tablet 01/08/17 Unknown Rx 5/325] ED Physical Exam - General Limitations: No Limitations General appearance: alert, in no apparent distress - Head Head exam: Present: atraumatic, normocephalic - Eye Eye exam: Present: normal appearance - ENT ENT exam: Present: mucous membranes moist - Neck Neck exam: Present: normal inspection - Respiratory Respiratory exam: Present: normal lung sounds bilaterally. Absent: respiratory distress - Cardiovascular Cardiovascular Exam: Present: regular rate, normal rhythm. Absent: systolic murmur, diastolic murmur, rubs, gallop - GI/Abdominal GI/Abdominal exam: Present: soft, normal bowel sounds - Extremities Exam Extremities exam: Present: normal inspection - Back Exam Back exam: Present: normal inspection - Neurological Exam Neurological exam: Present: alert, oriented X3 - Psychiatric Psychiatric exam: Present: normal affect, normal mood - Skin Skin exam: Present: warm, dry, intact, normal color. Absent: rash ED Course Vital Signs 01/06/18 23:13 Temperature 100.3 F H Pulse Rate 94 H Respiratory 14 Rate Blood Pressure 138/77 O2 Sat by Pulse 99 Oximetry ED Medical Decision Making - Medical Decision Making Patient has been evaluated by this provider fast track. Patient was given Tylenol for pain and fever management. Patient reports that her symptoms have improved since taking the Tylenol. Patient is currently taken antibiotic for urinary tract infection. Discussed mom can get combination of her UTI symptoms as well as a viral syndrome. Discussed mom to continue with antibiotics Tylenol for pain and fever control. And follow-up with her primary care provider in the next 2-3 days. Critical care attestation.: If time is entered above; I have spent that time in minutes in the direct care of this critically ill patient, excluding procedure time. ED Disposition Clinical Impression: Viral syndrome Disposition: DC-01 TO HOME OR SELFCARE Is pt being admited?: No Does the pt Need Aspirin: No Condition: Stable Instructions: Viral Syndrome (ED), Urinary Tract Infection in Women (ED) Additional Instructions: Continue with antibiotics for your urinary tract infection. Tylenol for fever pain management. Follow up with her primary care provider if symptoms persist or gets worse Referrals: PRIMARY CARE [Primary Care Provider] - 3-5 Days [facility] [Provider Group] - 3-5 Days Forms: Work/School Release Form(ED)
== END 2018-01-07 02:15 | disposition home or self-care (01) ==
LOC: ED 22:23
DX: O26.891 Other specified pregnancy related conditions, first trimester (principal); B34.9 Viral infection, unspecified; Z3A.10 10 weeks gestation of pregnancy
CPT/HCPCS: 99282

== ENCOUNTER 2018-05-06 16:35 | Outpatient (CLI) | payer MEDICAID | END 2018-05-06 18:31 | disposition home or self-care (01) | LOC: LAB 16:35 → TRG 16:35 | PROVIDERS: ATTEND Obstetrics & Gynecology | DX: O36.0130 Maternal care for anti-D [Rh] antibodies, third trimester, not applicable or unspecified (principal); Z3A.28 28 weeks gestation of pregnancy | CPT/HCPCS: 86850; 86900; 86901; 96372; J2790 ==

== ENCOUNTER 2018-06-19 16:28 | Outpatient (CLI) | payer MEDICAID ==
[2018-06-19 17:45] VITALS: BP 137/82
[2018-06-19 17:51] LABS: Alanine Aminotransferase 7 units/L (7-56); Uric Acid 4.9 mg/dL (3.5-7.6)
[2018-06-19 18:26] LABS: Bacteria,Urine 2+ /HPF (Negative); Bilirubin,Urine NEG (Negative); Blood,Urine NEG (Negative); Color,Urine Yellow (Yellow); Mucus,Urine FEW /HPF
[2018-06-19 18:43] LABS: Basophils # (Auto) 0.1 K/mm3 (0.0-0.1); Basophils % (Auto) 0.6 % (0.0-1.8); Eosinophils # (Auto) 0.1 K/mm3 (0.0-0.4); Eosinophils % (Auto) 1.6 % (0.0-4.3); Hematocrit 30.6 % (30.3-42.9); Hemoglobin 10.4 gm/dl (10.1-14.3); Lymphocytes # (Auto) 2.6 K/mm3 (1.2-5.4); Lymphocytes % (Auto) 28.5 % (13.4-35.0); Mean Corpuscular HGB Conc 34 % (30-34); Mean Corpuscular Volume 78 fl (79-97); Monocytes # (Auto) 0.4 K/mm3 (0.0-0.8); Monocytes % (Auto) 4.9 % (0.0-7.3); Platelet Count 364 K/mm3 (140-440); Red Blood Count 3.91 M/mm3 (3.65-5.03); Red Cell Distribution Width 15.2 % (13.2-15.2)
== END 2018-06-19 18:30 | disposition home or self-care (01) ==
LOC: TRG 16:28
PROVIDERS: ATTEND Obstetrics & Gynecology
DX: O47.03 False labor before 37 completed weeks of gestation, third trimester (principal); O13.3 Gestational [pregnancy-induced] hypertension without significant proteinuria, third trimester; Z3A.34 34 weeks gestation of pregnancy
CPT/HCPCS: 36415; 59025; 81001; 82565; 83615; 84450; 84460; 84550; 85025

== ENCOUNTER 2018-07-20 17:11 | Inpatient (IN) | payer MEDICAID ==
[2018-07-20] MEDS ORDERED: PEPCID IV ONE (19:24)
[2018-07-20] MEDS ORDERED: REGLAN IV ONE (19:24)
[2018-07-20] MEDS ORDERED: BICITRA PO ONE (19:24)
--- NOTE | 2018-07-20 19:26 | History and Physical Report ---
History of Present Illness Date of examination: 07/20/18 Date of admission: 07/20/18 18:39 Chief complaint: Elevated BP's in office History of present illness: Patient is a 33-year-old black female EDC 07/29/2018; EGA 38-6/7 weeks presents from [facility] for delivery due to elevated blood pressures in the office of 151/93. She received care at [facility] since 14 weeks and co-managed with [facility] for gestational diabetes on oral glycemic agent and previous 2. She was scheduled for at 39 weeks, but we will now proceed with a repeat with bilateral tubal ligation due to gestational hypertension. records are available and GBS is positive. Past History Past Medical History: hypertension, diabetes (GDM) Past Surgical History: section (x2) Family/Genetic History: none Social history: no significant social history, single - Obstetrical History : 3 Medications and Allergies Allergies Allergy/AdvReac Type Severity Reaction Status Date / Time No Known Allergies Allergy Verified 01/07/17 10:34 Home Medications Medication Instructions Recorded Confirmed Last Taken Type Ibuprofen [Motrin] 800 mg PO Q8HR PRN #30 tablet 01/08/17 Unknown Rx oxyCODONE /ACETAMINOPHEN [Percocet 1 tab PO Q6HR PRN #40 tablet 01/08/17 Unknown Rx 5/325] Review of Systems All systems: negative - Physical Exam Breasts: Positive: deferred Cardiovascular: Regular rate Lungs: Positive: Clear to auscultation Abdomen: Positive: normal appearance Genitourinary (Female): Positive: normal external genitalia Vagina: Positive: normal moisture Uterus: Positive: enlarged Extremities: Positive: normal - Obstetrical FHR: category 1 Uterine Contraction Monitor Mode: External Uterine Contraction Pattern: Absent Results Result Diagrams: 07/20/18 19:54 All other labs normal. Ultrasound: report reviewed Assessment and Plan - Patient Problems (1) 38 weeks gestation of Onset Date: 07/20/18 Current Visit: Yes Status: Acute Plan to address problem: A: Intrauterine at 38-6/7 weeks Gestational hypertension Gestational diabetes mellitus Previous 2 Desires permanent sterilization P: Admit to labor and delivery for a repeat section with bilateral tubal ligation Obtain PIH labs and Accu-Checks (2) Hypertension affecting in third trimester Onset Date: 07/20/18 Current Visit: Yes Status: Acute (3) GDM (gestational diabetes mellitus) Onset Date: 07/20/18 Current Visit: Yes Status: Acute Qualifiers: Gestational diabetes mellitus control: oral hypoglycemic-controlled Trim nancy: third trimester Qualified Code(s): O24.415 - Gestational diabetes mellitus in , controlled by oral hypoglycemic drugs (4) Previous delivery affecting Onset Date: 07/20/18 Current Visit: Yes Status: Chronic (5) Sterilization consult Onset Date: 07/20/18 Current Visit: Yes Status: Acute
[2018-07-20] MEDS ORDERED: PITOCin/NS 20 UNIT/1000ML DRIP 20 UNITS/1,000 ML BAG IV SCH ×2 (20:00→23:45)
[2018-07-20] MEDS ORDERED: ANCEF/STERILE WATER 2 GM/20 ML 2 GM/20 ML SYRINGE IV NR (20:00)
[2018-07-20 20:12] LABS: Basophils # (Auto) 0.1 K/mm3 (0.0-0.1); Basophils % (Auto) 0.6 % (0.0-1.8); Eosinophils # (Auto) 0.2 K/mm3 (0.0-0.4); Eosinophils % (Auto) 1.9 % (0.0-4.3); Hematocrit 35.4 % (30.3-42.9); Hemoglobin 11.7 gm/dl (10.1-14.3); Lymphocytes # (Auto) 2.8 K/mm3 (1.2-5.4); Mean Corpuscular HGB Conc 33 % (30-34); Mean Corpuscular Volume 78 fl (79-97); Monocytes # (Auto) 0.5 K/mm3 (0.0-0.8); Monocytes % (Auto) 5.1 % (0.0-7.3); Platelet Count 322 K/mm3 (140-440); Red Blood Count 4.53 M/mm3 (3.65-5.03); Red Cell Distribution Width 16.1 % (13.2-15.2)
[2018-07-20] MEDS: LACTATED RINGERS 1,000 ML IV SCH ×2 (20:16→21:00)
[2018-07-20] MEDS ORDERED: SUBLIMAZE ONE (21:12)
[2018-07-20] MEDS ORDERED: ZOFRAN ONE (21:12)
[2018-07-20] MEDS ORDERED: WATER FOR IRRIG STERILE IR ONE (21:34)
[2018-07-20] MEDS ORDERED: NACL 0.9% IR ONE (21:34)
[2018-07-20] MEDS ORDERED: TORADOL ONE (21:38)
[2018-07-20] MEDS ORDERED: LACTATED RINGERS 1,000 ML ONE (21:48)
[2018-07-20] MEDS ORDERED: PHENERGAN PR PRN (22:49)
[2018-07-20] MEDS ORDERED: BENADRYL IV PRN (22:49)
[2018-07-20] MEDS ORDERED: ZOFRAN IV PRN (22:49)
[2018-07-20] MEDS ORDERED: NARCAN 0.4 MG/1 ML IV PRN ×2 (22:49→23:15)
[2018-07-20] MEDS ORDERED: DILAUDID IV PRN (22:49)
[2018-07-20] MEDS ORDERED: PHENERGAN PO PRN (22:49)
--- NOTE | 2018-07-20 22:50 | Anesthesia Consultation ---
Anesthesia Consult and Med Hx - Airway Anesthetic Teeth Evaluation: Good ROM Head & Neck: Adequate Mental/Hyoid Distance: Adequate Mallampati Class: Class II Intubation Access Assessment: Probably Good - Pulmonary Exam CTA: Yes - Cardiac Exam Cardiac Exam: RRR - Pre-Operative Health Status ASA Pre-Surgery Classification: ASA2, ASA3 Proposed Anesthetic Plan: Spinal - Pulmonary Hx Smoking: No Hx Asthma: No Hx Respiratory Symptoms: No SOB: No COPD: No Home Oxygen Therapy: No Hx Pneumonia: No Hx Sleep Apnea: No - Cardiovascular System Hx Hypertension: Yes (gestational) - Central Nervous System Hx Seizures: No Hx Psychiatric Problems: No - Endocrine Hx Renal Disease: No Hx End Stage Renal Disease: No Hx Hypothyroidism: No Hx Hyperthyroidism: No - Hematic Hx Anemia: No Hx Sickle Cell Disease: No - Other Systems Hx Alcohol Use: No Hx Cancer: No Hx Obesity: Yes (Morbid obesity BMI 42.8)
--- NOTE | 2018-07-20 22:51 | Post Anesthesia Evaluation ---
- Post Anesthesia Evaluation Patient Participated: Yes Airway Patent: Yes Stable Respiratory Function: Yes Nausea/Vomiting: No Temp > 96.8F: Yes Pain Manageable: Yes Adequeate Hydration: Yes Anesthesia Complications: No Block Receding Appropriately: Yes Patient on Ventilator: No
--- NOTE | 2018-07-20 22:51 | Anesthesia Day of Surgery ---
Anesthesia Day of Surgery - Day of Surgery Patient Examined: Yes Patient H&P Reviewed: Yes Patient is NPO: Yes Beta Blockers: No Cardiac Clearance: No Pulmonary Clearance: No Pro's Test: N/A
--- NOTE | 2018-07-20 22:54 | Operative Report ---
Operative Report Operative Report: Date of procedure: 07/20/2018 Pre-operative diagnosis: 1. Intrauterine at 38-6/7 weeks 2. Gestat ional hypertension 3. Gestational diabetes mellitus 4. Previous 2 5. Desires permanent sterilization Post-operative diagnosis: Same with extensive lower uterine segment adhesions Procedure name(s): 1. Repeat low transverse section 2. Bilateral tubal ligation 3. Adhesiolysis Surgeon: Tyler Rodriguez MD Pediatric Medical Assistant: None Anesthesia: Spinal anesthesia by Kam Rodriguez CRNA EBL: 600 mls Findings: A 2862 g male Apgars 8 at 1 minute 9 at 5 minutes. Clear amniotic fluid. Nuchal cord 2. Normal uterus with extensive amounts of lower uterine segment adhesions. Right fallopian tube showed evidence of previous tubal ligation and left fallopian tube was normal. Normal ovaries bilaterally. Procedure: After the patient was prepped and draped in usual sterile fashion, and after satisfactory level of epidural anesthesia was obtained, the skin knife was used to make a transverse skin incision through the previous skin scars. The incision was excised down to layer of the fascia, which was nicked in the midline and extended laterally using the Bovie cautery. The rectus muscles were dissected off the rectus fascia both superiorly and inferiorly. The rectus bellies in the midline, and the peritoneum was entered under direct visualization. Extensive lower uterine segment adhesions were taken down using both sharp and blunt dissection. The peritoneal incision was extended superiorly and inferiorly. A bladder flap was created and the bladder blade was then placed. The uterus was scored in a curvilinear linear fashion, entered in the midline revealing clear amniotic fluid. The 's head was delivered onto the surgical field with the aid of a vacuum, and the oropharynx and nasopharynx were bulb suctioned. Nuchal cord 2 was easily reduced and the rest of the infant's body was delivered, cord was doubly clamped and cut and the was handed to the waiting respiratory team. Cord blood was then obtained. The placenta was manually removed from the uterus, and the uterus removed from its normal anatomical position. After gentle uterine lavage, the incision was inspected and found to be without extensions. It was then closed in 2 layers using 0 Vicryl suture in a running interlocking fashion, the second layer imbricating the first. After good hemostasis was achieved, copious amounts or irrigation was performed, and the gutters were suctioned free of blood and blood clots. Attention was then turned to the tubal ligation. The proximal portion of the right fallopian tube was absent, and 2 Filshie clips were found floating in the peritoneal cavity. 2 new Filshie clips were applied to the proximal portion of the left fallopian tube. The Tisseel sealant was sprayed across the uterine incision, and Interceed was also placed over the lower uterine segment. The uterus was then returned to its normal anatomical position, and after excellent hemostasis assured, the peritoneum was re-approximated using 3-0 Vicryl suture in a running interlocking fashion, and then the rectus muscles were re-approximated using 3-0 Vicryl suture in a [id number] configuration. The fascia was then re-approximated using 0 Vicryl suture in running interlocking fashion. The subcutaneous layer was made hemostatic using Bovie cautery, the Tisseel sealant was sprayed across the fascial incision and the skin edges re-approximated using 4-0 Vicryl suture in a sub-cuticular fashion. Patient tolerated the procedure well was transported to recovery in stable condition.
[2018-07-20] MEDS ORDERED: SODIUM CHLORIDE FLUSH SYRINGE 10 ML IV NR ×2 (23:00→23:45)
[2018-07-20] MEDS ORDERED: MILK OF MAGNESIA PO PRN (23:15)
[2018-07-20] MEDS ORDERED: D50W (25GM) Syringe IV PRN (23:15)
[2018-07-20] MEDS ORDERED: TYLENOL PO PRN (23:15)
[2018-07-20] MEDS ORDERED: PERCOCET 5/325 PO PRN (23:15)
[2018-07-20] MEDS ORDERED: LANSINOH TP PRN (23:15)
[2018-07-20] MEDS ORDERED: MYLICON PO PRN (23:15)
[2018-07-20] MEDS ORDERED: IBUPROFEN PO PRN (23:15)
[2018-07-20] MEDS ORDERED: TUCKS PAD TP PRN (23:15)
[2018-07-20] MEDS ORDERED: SENOKOT PO PRN (23:15)
[2018-07-20] MEDS ORDERED: D5LR 1,000 ML IV SCH (23:45)
[2018-07-21] MEDS ORDERED: TYLENOL PO ONE (03:16)
[2018-07-21] MEDS: TORADOL IV PRN ×2 (03:51→13:47)
[2018-07-21] MEDS: ANCEF/NS 1 GM/50 ML 1 GM/50 ML BAG IV SCH ×2 (03:54→13:52)
[2018-07-21] MEDS ORDERED: BOOSTRIX IM ONE (06:00)
[2018-07-21] MEDS ORDERED: PITOCin/NS 30 UNIT/500ML 30 UNITS/500 ML BAG IV SCH (06:00)
[2018-07-21] MEDS ORDERED: M-M-R II VACCINE SUB-Q ONE (06:00)
[2018-07-21] MEDS: FEOSOL PO SCH (08:42)
[2018-07-21] MEDS: PRENATAL VITAMIN PO SCH (08:42)
[2018-07-21] MEDS ORDERED: PNEUMOVAX 23 IM ONE (12:00)
[2018-07-21] MEDS ORDERED: AFLURIA QUAD 2018-2019 SYRINGE IM ONE (12:00)
[2018-07-21 13:21] LABS: Hematocrit 26.5 % (30.3-42.9); Hemoglobin 8.8 gm/dl (10.1-14.3)
--- NOTE | 2018-07-21 16:12 | Progress Note ---
Assessment and Plan - Patient Problems (1) 38 weeks gestation of Onset Date: 07/20/18 Current Visit: Yes Status: Resolved (2) Hypertension affecting in third trimester Onset Date: 07/20/18 Current Visit: Yes Status: Resolved (3) GDM (gestational diabetes mellitus) Onset Date: 07/20/18 Current Visit: Yes Status: Resolved Qualifiers: Gestational diabetes mellitus control: oral hypoglycemic-controlled Trimester: third trimester Qualified Code(s): O24.415 - Gestational diabetes mellitus in , controlled by oral hypoglycemic drugs (4) Previous delivery affecting Onset Date: 07/20/18 Current Visit: Yes Status: Resolved (5) Sterilization consult Onset Date: 07/20/18 Current Visit: Yes Status: Resolved (6) Status post Onset Date: 07/21/18 Current Visit: Yes Status: Resolved Plan to address problem: A: S/P Repeat C Section with BTL - POD #1 Doing well Asymptomatic anemia - stable GDM - Blood sugars stable Gestational hypertension - resolved P: Continue RPOC Anticipate discharge in 24-48hrs (7) Acute blood loss anemia Onset Date: 07/21/18 Current Visit: Yes Status: Resolved Subjective - Subjective Date of service: 07/21/18 Principal diagnosis: s/p Repeat C Section with BTL - POD #1 Interval history: Patient is feeling well without complaints. Bleeding improved. She is tolerating a liquid diet without nausea or vomiting. + Flatus. Patient reports: appetite normal, voiding normally, pain well controlled, flatus, ambulating normally, no dizzy ambulation, no nauseated : doing well, nursing well, bottle feeding Objective - Vital Signs Latest vital signs: Vital Signs Temp Pulse Resp BP BP Pulse Ox 07/21/18 13:47 20 07/21/18 12:11 98.3 F 93 H 24 95/35 98 07/21/18 09:08 98.3 F 90 24 112/62 98 07/21/18 04:21 18 07/21/18 04:09 98.7 F 75 18 135/73 97 07/21/18 03:51 18 07/21/18 00:26 97.8 F 71 18 116/61 100 07/21/18 00:24 18 07/20/18 23:58 71 12 104/52 100 07/20/18 23:43 70 16 107/55 100 07/20/18 23:28 68 17 127/66 100 07/20/18 23:13 71 19 119/71 100 07/20/18 22:58 67 16 118/63 100 07/20/18 22:53 66 12 117/61 100 07/20/18 22:48 97.9 F 65 16 102/64 100 07/20/18 20:15 83 134/83 07/20/18 19:42 97.6 F 86 16 140/77 07/20/18 19:27 86 140/77 Intake and Output 07/21/18 07/21/18 07/21/18 06:59 14:59 22:59 Intake Total 1160 50 Output Total 2050 Balance -890 50 Intake: IV 500 50 ANCEF/NS 1 GM/50 ML 1 gm 50 In 50 ml @ 100 mls/hr IV Q8H ON LICENSE OF [facility] Rx#:[id number] Intake, Free Water 660 Output: Urine 2049 Indwelling Catheter 2049 Other: Total, Output Amount 700 # Voids Indwelling Catheter 800 Estimated Blood Loss 600 - Exam Breasts: Present: deferred Abdomen: Present: normal appearance, soft Uterus: Present: normal, firm, fundal height below umbilicus Extremities: Present: normal Incision: Present: normal, dry, intact, dressed - Labs Labs: Abnormal lab results 07/20/18 07/21/18 Range/Units 19:54 13:05 Hgb 8.8 L (10.1-14.3) gm/dl Hct 26.5 L D (30.3-42.9) % MCV 78 L (79-97) fl MCH 26 L (28-32) pg RDW 16.1 H (13.2-15.2) % Laboratory Tests 07/20/18 07/20/18 07/20/18 19:54 19:54 19:54 WBC 9.9 RBC 4.53 Hgb 11.7 Hct 35.4 MCV 78 L MCH 26 L MCHC 33 RDW 16.1 H Plt Count 322 Lymph % (Auto) 28.0 [place] % (Auto) 5.1 Eos % (Auto) 1.9 Baso % (Auto) 0.6 Lymph # 2.8 [place] # 0.5 Eos # 0.2 Baso # 0.1 Seg Neutrophils % 64.4 Seg Neutrophils # 6.4 POC Glucose RPR Nonreactive Hep Bs Antigen Blood Type O NEGATIVE Antibody Screen Negative Screen 07/21/18 07/21/18 07/21/18 08:23 12:12 13:05 WBC RBC Hgb 8.8 L Hct 26.5 L D MCV MCH MCHC RDW Plt Count Lymph % (Auto) [place] % (Auto) Eos % (Auto) Baso % (Auto) Lymph # [place] # Eos # Baso # Seg Neutrophils % Seg Neutrophils # POC Glucose 81 94 RPR Hep Bs Antigen Blood Type Antibody Screen Screen 07/21/18 07/21/18 13:05 13:05 WBC RBC Hgb Hct MCV MCH MCHC RDW Plt Count Lymph % (Auto) [place] % (Auto) Eos % (Auto) Baso % (Auto) Lymph # [place] # Eos # Baso # Seg Neutrophils % Seg Neutrophils # POC Glucose RPR Hep Bs Antigen Non-reactive Blood Type O NEGATIVE Antibody Screen Negative Screen Negative
[2018-07-21] MEDS: HumuLIN R SUB-Q SCH (22:00)
[2018-07-21] MEDS: NORCO 5/325 PO PRN (23:06)
[2018-07-22] MEDS: NORCO 5/325 PO PRN ×2 (05:40→13:47)
[2018-07-22] MEDS: HumuLIN R SUB-Q SCH ×2 (08:00→12:25)
--- NOTE | 2018-07-22 08:55 | Progress Note ---
Assessment and Plan - Patient Problems (1) 38 weeks gestation of Onset Date: 07/20/18 Current Visit: Yes Status: Resolved (2) Hypertension affecting in third trimester Onset Date: 07/20/18 Current Visit: Yes Status: Resolved (3) GDM (gestational diabetes mellitus) Onset Date: 07/20/18 Current Visit: Yes Status: Resolved Qualifiers: Gestational diabetes mellitus control: oral hypoglycemic-controlled Trimester: third trimester Qualified Code(s): O24.415 - Gestational diabetes mellitus in , controlled by oral hypoglycemic drugs (4) Previous delivery affecting Onset Date: 07/20/18 Current Visit: Yes Status: Resolved (5) Sterilization consult Onset Date: 07/20/18 Current Visit: Yes Status: Resolved (6) Status post Onset Date: 07/21/18 Current Visit: Yes Status: Resolved Plan to address problem: A: S/P Repeat C Section with BTL - POD #2 Doing well Asymptomatic anemia - stable GDM - Blood sugars stable Gestational hypertension - resolved P: May go home today. (7) Acute blood loss anemia Onset Date: 07/21/18 Current Visit: Yes Status: Resolved Subjective - Subjective Date of service: 07/22/18 Principal diagnosis: s/p Repeat C Section with BTL - POD #2 Interval history: Patient is feeling well without complaints. She is tolerating a reg diet without nausea or vomiting, ambulating and voiding without difficulty. Wants to go home today. Patient reports: appetite normal, voiding normally, pain well controlled, flatus, ambulating normally, no dizzy ambulation, no nauseated [place]: doing well, nursing well, bottle feeding Objective - Vital Signs Latest vital signs: Vital Signs Temp Pulse Resp BP Pulse Ox 07/22/18 01:35 99.0 F 92 H 20 120/55 96 07/21/18 21:34 99.5 F 103 H 20 127/77 100 07/21/18 16:53 98.7 F 95 H 20 121/68 99 07/21/18 13:47 20 07/21/18 12:11 98.3 F 93 H 24 95/35 98 07/21/18 09:08 98.3 F 90 24 112/62 98 - Exam Abdomen: Present: normal appearance, soft Uterus: Present: normal, firm, fundal height below umbilicus Extremities: Present: normal Incision: Present: normal, dry, intact - Labs Labs: Abnormal lab results 07/21/18 07/21/18 Range/Units 13:05 22:10 Hgb 8.8 L (10.1-14.3) gm/dl Hct 26.5 L D (30.3-42.9) % POC Glucose 135 H (70-105)
[2018-07-22] MEDS: PRENATAL VITAMIN PO SCH (09:37)
[2018-07-22] MEDS: FEOSOL PO SCH (09:37)
--- NOTE | 2018-07-22 10:01 | Discharge Summary ---
Providers - Providers Date of Admission: 07/20/18 18:39 Date of discharge: 07/22/18 Attending physician: BI NGUYEN Primary care physician: BI NGUYEN Hospitalization Reason for admission: section (Previous C Section x 2), IUP at term, other (Gestational hypertension; Gestational diabetes mellitus; Desires permanent sterilization) Delivery: Procedure: section, bilateral tubal ligation, repeat low transverse Episiotomy: none Laceration: none Incision: normal, dry, intact Other procedures: tubal ligation complications: none Discharge diagnosis: IUP at term delivered (s/p Repeat C Section with BTL) baby: male Hospital course: Patient is a 33-year-old black female EDC 07/29/2018; EGA 38-6/7 weeks who presented from [facility] for delivery due to elevated blood pressures in the office of . She received care at [facility] since 14 weeks and co-managed with [facility] for gestational diabetes on oral glycemic agent and previous 2. She was scheduled for at 39 weeks, but underwent an uncomplicated Repeat with bilateral tubal ligation without complications. By POD #2 she was tolerating a reg diet without nausea or vomiting, ambulating and voiding without difficulty, and blood sugars were stable without medication. She was therefore discharged to home on POD #2 in stable condition. Condition at discharge: Good Disposition: DC-[id number] TO HOME OR SELFCARE - Discharge Diagnoses (1) 38 weeks gestation of Status: Resolved (2) Hypertension affecting in third trimester Status: Resolved (3) GDM (gestational diabetes mellitus) Status: Resolved Qualifiers: Gestational diabetes mellitus control: oral hypoglycemic-controlled Trimester: third trimester Qualified Code(s): O24.415 - Gestational diabetes mellitus in , controlled by oral hypoglycemic drugs (4) Previous delivery affecting Status: Resolved (5) Sterilization consult Status: Resolved Plan - Discharge Medications Prescriptions: Ferrous Sulfate [Feosol 325 MG tab] 325 mg PO BID #60 tablet Ibuprofen [Motrin 800 MG tab] 800 mg PO Q6H PRN #30 tablet PRN Reason: Pain, Mild (1-3) HYDROcodone/APAP 5-325 [[place] 5-325 mg TAB] 1 each PO Q6HR PRN #30 tablet PRN Reason: Pain, Moderate (4-6) Vit-Fe Fumar-FA [ Vitamin] 1 each PO QDAY #30 tablet - Provider Discharge Summary Activity: routine, no sex for 6 weeks, no heavy lifting 4 weeks, no strenuous exercise Diet: routine Instructions: routine Additional instructions: [] Smoking cessation referral if applicable(refer to patient education folder for contact #) [] Refer to [facility]'s [place] [facility] Booklet Call your doctor immediately for: * Fever > 100.5 * Heavy vaginal bleeding ( >1 pad per hour) * Severe persistent headache * Shortness of breath * Reddened, hot, painful area to leg or breast * Drainage or odor from incision. * Keep incision clean and dry at all times and follow doctor's instructions regarding bathing/showering - Follow up plan Follow up: BI NGUYEN MD [Primary Care Provider] - 14 Days
[2018-07-22 14:46] VITALS: BP 122/75
== END 2018-07-22 14:40 | disposition home or self-care (01) | DRG 765 ==
LOC: TRG 17:11 → LD 18:39 → APU 22:30 → OB 07-21 00:22
PROVIDERS: ADMIT Obstetrics & Gynecology; ATTEND Obstetrics & Gynecology
PROC: 10D00Z1 Extraction of Products of Conception, Low, Open Approach (ICD-10-PCS; principal; 2018-07-20)
PROC: 0UL70CZ Occlusion of Bilateral Fallopian Tubes with Extraluminal Device, Open Approach (ICD-10-PCS; 2018-07-20)
PROC: 0UN90ZZ Release Uterus, Open Approach (ICD-10-PCS; 2018-07-20)
PROC: 3E0234Z Introduction of Serum, Toxoid and Vaccine into Muscle, Percutaneous Approach (ICD-10-PCS; 2018-07-21)
PROC: 3E0334Z Introduction of Serum, Toxoid and Vaccine into Peripheral Vein, Percutaneous Approach (ICD-10-PCS; 2018-07-21)
DX: O34.211 Maternal care for low transverse scar from previous cesarean delivery (principal); O13.4 Gestational [pregnancy-induced] hypertension without significant proteinuria, complicating childbirth; O24.425 Gestational diabetes mellitus in childbirth, controlled by oral hypoglycemic drugs; O99.824 Streptococcus B carrier state complicating childbirth; O69.81X0 Labor and delivery complicated by cord around neck, without compression, not applicable or unspecified; N73.6 Female pelvic peritoneal adhesions (postinfective); O99.214 Obesity complicating childbirth; E66.01 Morbid (severe) obesity due to excess calories; O99.62 Diseases of the digestive system complicating childbirth; Z3A.38 38 weeks gestation of pregnancy; Z37.0 Single live birth; Z23 Encounter for immunization
CPT/HCPCS: 36415; 82962; 85014; 85018; 85025; 85461; 86592; 86706; 86850; 86900; 86901; 90471; 90686; 90715; 90732; G0378; C9250; J0690; J1170; J1885; J2405; J2590; J2765; J2790; J3010; J7120; J7121

== ENCOUNTER 2019-10-14 20:02 | Emergency (ER) | payer MEDICAID, OTHER ==
[2019-10-14 20:07] VITALS: BP 145/90
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
== END 2019-10-15 00:15 | disposition left against medical advice (07) ==
LOC: ED 20:02
DX: Z04.1 Encounter for examination and observation following transport accident (principal); Z53.21 Procedure and treatment not carried out due to patient leaving prior to being seen by health care provider

== ENCOUNTER 2021-07-24 16:25 | Emergency (ER) | payer MEDICAID, OTHER ==
[2021-07-24 18:57] VITALS: BP 149/94
--- NOTE | 2021-07-24 19:28 | XRay Report ---
RIGHT TOES 3 VIEWS INDICATION / CLINICAL INFORMATION: injury COMPARISON: None available. FINDINGS: BONES / JOINT(S): There is a mildly displaced comminuted fracture of the distal phalanx of the great toe. No intra-articular extension is seen. No additional fractures. No significant arthritis. SOFT TISSUES: No significant abnormality. ADDITIONAL FINDINGS: None. IMPRESSION: Comminuted great toe distal phalanx fracture. Signer Name: Marques Brewster MD Signed: 07/24/2021 7:24 PM Workstation Name: [id number]
[2021-07-24] MEDS ORDERED: ACETAMINOPHEN W/CODEINE 300-30 MG TAB PO ONE (20:54)
--- NOTE | 2021-07-24 21:23 | Emergency Department Report ---
ED Lower Extremity HPI - General Chief Complaint: Extremity Injury, Lower Stated Complaint: TOE INJURY Time Seen by Provider: 07/24/21 20:41 Source: patient Mode of arrival: Ambulatory Limitations: No Limitations - History of Present Illness Initial Comments: 36-year-old black female presents to the emergency department for evaluation of right great toe pain and swelling. She states that while at work today, she dropped the car part on her toe and has had pain and swelling since then. She states that pain is 10 out of 10. MD Complaint: foot injury -: Sudden Injury: Toes: Right Type of Injury: blunt Place: work Severity: severe Severity scale (0 -10): 10 Worsens With: weight bearing Context: direct blow Associated Symptoms: swelling, able to partially bear weight - Related Data Previous Rx's Medication Instructions Recorded Last Taken Type Ibuprofen [Motrin] 800 mg PO Q8HR PRN #30 tablet 01/08/17 Unknown Rx oxyCODONE /ACETAMINOPHEN [Percocet 1 tab PO Q6HR PRN #40 tablet 01/08/17 Unknown Rx 5/325] Ferrous Sulfate [Feosol 325 MG tab] 325 mg PO BID #60 tablet 07/22/18 Unknown Rx HYDROcodone/APAP 5-325 [[place] 1 each PO Q6HR PRN #30 tablet 07/22/18 Unknown Rx 5-325 mg TAB] Ibuprofen [Motrin 800 MG tab] 800 mg PO Q6H PRN #30 tablet 07/22/18 Unknown Rx Vit-Fe Fumar-FA [ 1 each PO QDAY #30 tablet 07/22/18 Unknown Rx Vitamin] Acetaminophen/Codeine [Tylenol 1 tab PO Q6H PRN #10 tab 07/24/21 Unknown Rx /Codeine # 3 tab] Allergies Allergy/AdvReac Type Severity Reaction Status Date / Time No Known Allergies Allergy Verified 07/24/21 18:57 ED Review of Systems ROS: Stated complaint: TOE INJURY Other details as noted in HPI Comment: All other systems reviewed and negative Constitutional: denies: chills, fever Respiratory: denies: shortness of breath Cardiovascular: denies: chest pain, palpitations, dyspnea on exertion Gastrointestinal: denies: abdominal pain, nausea, vomiting Musculoskeletal: denies: back pain Neurological: denies: headache, weakness ED Past Medical Hx - Past Medical History Hx Hypertension: Yes (gestational) Hx Congestive Heart Failure: No Hx Diabetes: Yes (gestational) Hx Deep Vein Thrombosis: No Hx Renal Disease: No Hx Sickle Cell Disease: No Hx Seizures: No Hx Asthma: No Hx COPD: No Hx HIV: No Additional medical history: Gestational DM - Surgical History Additional Surgical History: - Social History Smoking Status: Never Smoker Substance Use Type: None - Medications Home Medications: Home Medications Medication Instructions Recorded Confirmed Last Taken Type Ibuprofen [Motrin] 800 mg PO Q8HR PRN #30 tablet 01/08/17 07/21/18 Unknown Rx oxyCODONE /ACETAMINOPHEN [Percocet 1 tab PO Q6HR PRN #40 tablet 01/08/17 07/21/18 Unknown Rx 5/325] Ferrous Sulfate [Feosol 325 MG tab] 325 mg PO BID #60 tablet 07/22/18 Unknown Rx HYDROcodone/APAP 5-325 [[place] 1 each PO Q6HR PRN #30 tablet 07/22/18 Unknown Rx 5-325 mg TAB] Ibuprofen [Motrin 800 MG tab] 800 mg PO Q6H PRN #30 tablet 07/22/18 Unknown Rx Vit-Fe Fumar-FA [ 1 each PO QDAY #30 tablet 07/22/18 Unknown Rx Vitamin] Acetaminophen/Codeine [Tylenol 1 tab PO Q6H PRN #10 tab 07/24/21 Unknown Rx /Codeine # 3 tab] ED Physical Exam - General Limitations: No Limitations General appearance: alert, in no apparent distress - Head Head exam: Present: atraumatic, normocephalic - Eye Eye exam: Present: normal appearance. Absent: conjunctival injection - Neck Neck exam: Present: normal inspection - Respiratory Respiratory exam: Absent: respiratory distress - Cardiovascular Cardiovascular Exam: Present: normal rhythm - GI/Abdominal GI/Abdominal exam: Absent: distended - Expanded Lower Extremity Exam Right Foot/Toe exam: Present: tenderness, swelling. Absent: full ROM, dislocation, puncture wound, calcaneal tenderness, tenderness at base of 5th metatarsal, nail avulsion, subungual hematoma Neuro vascular tendon exam: Present: no vascular compromise. Absent: pulse deficit, abnormal cap refill, motor deficit, sensory deficit, extremity cold to touch Gait: Positive: observed and limited by pain - Back Exam Back exam: Present: normal inspection - Neurological Exam Neurological exam: Present: alert, oriented X3 - Psychiatric Psychiatric exam: Present: normal affect, normal mood - Skin Skin exam: Present: warm, dry, intact, normal color ED Course Vital Signs 07/24/21 07/24/21 18:54 21:03 Temperature 98.0 F Pulse Rate 75 Respiratory 18 16 Rate Blood Pressure 149/94 O2 Sat by Pulse 98 Oximetry - Orthopedic Splinting/Casting Injury #1 Side: right Lower Extremity Injury Location: toe (Right great) Lower Extremity Immobilizer: ansley tape Other Orthopedic Equipment: other (Postop shoe) ED Lower Extremity MDM - Radiology Data Radiology results: report reviewed, image reviewed X-ray of right foot: FINDINGS: BONES / JOINT(S): There is a mildly displaced comminuted fracture of the distal phalanx of the great toe. No intra-articular extension is seen. No additional fractures. No significant arthritis. SOFT TISSUES: No significant abnormality. ADDITIONAL FINDINGS: None. IMPRESSION: Comminuted great toe distal phalanx fracture. - Medical Decision Making 6-year-old black female presents to the emergency department for evaluation of right great toe pain and swelling. She states that while at work today, she dropped the car part on her toe and has had pain and swelling since then. She states that pain is 10 out of 10. Right foot x-ray positive for comminuted fracture of distal phalanx of right great toe. Toe will be ansley taped and patient placed in postop shoe. She will be discharged home with Tylenol 3 to use as needed for pain and advised to follow-up with orthopedics for further evaluation and management. Patient verbalizes understanding of and agreement with plan of care. Critical care attestation.: If time is entered above; I have spent that time in minutes in the direct care of this critically ill patient, excluding procedure time. ED Disposition Clinical Impression: Toe fracture, right Qualifiers: Encounter type: initial encounter Toe: great toe Fracture type: closed Phalanx: distal Fracture alignment: nondisplaced Qualified Code(s): S92.424A - Nondisplaced fracture of distal phalanx of right great toe, initial encounter for closed fracture Disposition: HOME / SELF CARE / HOMELESS Is pt being admited?: No Does the pt Need Aspirin: No Condition: Stable Instructions: Toe Fracture, [id number], Toe Fracture Rehab-SportsMed Additional Instructions: Take medications as prescribed. Follow-up with orthopedics for further evaluation and management. Prescriptions: Acetaminophen/Codeine [Tylenol /Codeine # 3 tab] 1 tab PO Q6H PRN #10 tab PRN Reason: Pain , Severe (7-10) Referrals: WESLY ARRINGTON MD [Primary Care Provider] - 3-5 Days CITLALLI STACY MD [Staff Physician] - 3-5 Days Forms: Work/School Release Form Time of Disposition: 21:23
== END 2021-07-24 21:30 | disposition home or self-care (01) ==
LOC: ED 16:25
DX: S92.404A Nondisplaced unspecified fracture of right great toe, initial encounter for closed fracture (principal); X58.XXXA Exposure to other specified factors, initial encounter; Y93.89 Activity, other specified; Y92.89 Other specified places as the place of occurrence of the external cause; Y99.8 Other external cause status
CPT/HCPCS: 99283